=== PATIENT | male | born 1980 | race Two or more races ===

== ENCOUNTER 2016-06-04 09:34 | Emergency (ER) | payer OTHER ==
[~2016-06-04] VITALS: Ht 177.8 cm; Wt 113.4 kg
[2016-06-04 10:50] VITALS: BP 156/77
== END 2016-06-04 11:24 | disposition home or self-care (01) ==
LOC: ER 09:34
DX: S39.012A Strain of muscle, fascia and tendon of lower back, initial encounter (principal); V49.9XXA Car occupant (driver) (passenger) injured in unspecified traffic accident, initial encounter; Y93.89 Activity, other specified; Y99.8 Other external cause status; Y92.89 Other specified places as the place of occurrence of the external cause

== ENCOUNTER 2017-02-23 10:40 | Emergency (ER) | payer OTHER ==
[~2017-02-23] VITALS: Ht 177.8 cm; Wt 115.7 kg
[2017-02-23 11:17] LABS: Basophils # (auto) 0.1 uL; Basophils % (auto) 1.2 % (0.0-2.0); Eosinophils # (auto) 0.1 uL; Hematocrit 46.4 % (41.0-53.0); Hemoglobin 16.3 g/dL (13.5-17.5); Lymphocytes # (auto) 2.4 uL; Lymphocytes % (auto) 37.9 % (10.0-50.0); Mean Corpuscular Hemoglobin 31.5 pg (28.0-32.0); Mean Corpuscular Hgb Conc. 35.1 g/dL (32.0-36.0); Mean Corpuscular Volume 89.9 fL (80.0-100.0); Mean Platelet Volume 7.6 fL (6.9-10.8); Monocytes # (auto) 0.3 uL; Monocytes % (auto) 4.5 % (0.0-12.0); Neutrophils # (auto) 3.5 uL; Neutrophils % (auto) 54.4 % (37.0-80.0); Nucleated Red Blood Cells % 0.5 %; Platelet Count (auto) 272 10^3/uL (140-450); Red Cell Distribution Width 12.7 % (11.8-14.3); White Blood Cell 6.4 10^3/uL (4.4-10.8)
[2017-02-23 11:42] LABS: Albumin 3.6 g/dL (3.4-5.0); Alkaline Phosphatase 97 U/L (45-117); Anion Gap 10 (5-15); Aspartate Aminotransferase 19 U/L (15-37); BUN/Creatinine Ratio 15.5; Bilirubin, Total 0.3 mg/dL (0.2-1.0); Blood Urea Nitrogen 13 mg/dL (7-18); Calcium 8.3 mg/dL (8.5-10.1); Carbon Dioxide 23 mmol/L (21-32); Chloride 106 mmol/L (98-107); GFR African American 132 mL/min; GFR Non-African American 109 mL/min; Glucose 105 mg/dL (74-106); Magnesium 2.3 mg/dL (1.6-2.6); Potassium 4.2 mmol/L (3.5-5.1); Sodium 139 mmol/L (136-145); Total Protein 7.5 g/dL (6.4-8.2)
[2017-02-23 13:05] VITALS: BP 117/78
== END 2017-02-23 13:41 | disposition home or self-care (01) ==
LOC: ER 10:40
DX: R07.89 Other chest pain (principal); R06.02 Shortness of breath; R53.1 Weakness; R53.83 Other fatigue; M79.602 Pain in left arm
CPT/HCPCS: 36415; 71020; 80053; 83735; 84484; 85025; 93005; 94761

== ENCOUNTER 2017-12-13 02:21 | Emergency (ER) | payer MEDICAID, OTHER ==
[~2017-12-13] VITALS: Ht 180.3 cm; Wt 122.5 kg
[2017-12-13 02:34] VITALS: BP 157/98
== END 2017-12-13 04:41 | disposition home or self-care (01) ==
LOC: ER 02:26
DX: J01.90 Acute sinusitis, unspecified (principal); J30.9 Allergic rhinitis, unspecified; F12.10 Cannabis abuse, uncomplicated

== ENCOUNTER 2018-01-15 17:30 | Emergency (ER) | payer MEDICAID ==
[~2018-01-15] VITALS: Ht 180.3 cm; Wt 122.5 kg
[2018-01-15 20:08] VITALS: BP 138/48
[2018-01-15] MEDS ORDERED: HYDROcodone-ACET 10/325MG TAB PO ONE (21:15)
== END 2018-01-15 21:23 | disposition home or self-care (01) ==
LOC: ER 17:31
DX: M72.2 Plantar fascial fibromatosis (principal); F12.10 Cannabis abuse, uncomplicated
CPT/HCPCS: 73630; 99284; L3260

== ENCOUNTER 2019-07-09 15:25 | Inpatient (IN) | payer MEDICAID, OTHER ==
[~2019-07-09] VITALS: Ht 172.7 cm; Wt 114.4 kg
[2019-07-09 16:21] LABS: Urine Bacteria NONE SEEN /hpf (None Seen); Urine Blood 1+ /uL (Negative); Urine Mucus FEW (None Seen); Urine Specific Gravity 1.028 (1.001-1.035); Urine WBC 1 /hpf (0 - 3)
[2019-07-09 16:46] LABS: Basophils # (auto) 0.1 10 ^3/uL (0-0.2); Basophils % (auto) 0.6 % (0.0-2.0); Eosinophils # (auto) 0.1 10 ^3/uL (0-0.8); Eosinophils % (auto) 0.5 % (0.0-7.0); Hematocrit 45.5 % (41.0-53.0); Hemoglobin 15.5 g/dL (13.5-17.5); Lymphocytes # (auto) 2.4 10 ^3/uL (0.4-5.4); Lymphocytes % (auto) 21.1 % (10.0-50.0); Mean Corpuscular Hemoglobin 30.5 pg (28.0-32.0); Mean Corpuscular Hgb Conc. 34.1 g/dL (32.0-36.0); Mean Corpuscular Volume 89.3 fL (80.0-100.0); Monocytes # (auto) 0.7 10 ^3/uL (0-1.3); Monocytes % (auto) 6.3 % (0.0-12.0); Neutrophils % (auto) 71.5 % (37.0-80.0); Platelet Count (auto) 301 10^3/uL (140-450); White Blood Cell 11.2 10^3/uL (4.4-10.8)
[2019-07-09 17:01] LABS: Albumin 3.7 g/dL (3.4-5.0); Calcium 9.3 mg/dL (8.5-10.1); Potassium 4.2 mmol/L (3.5-5.1)
[2019-07-09 17:04] LABS: BUN/Creatinine Ratio 20.9; Bilirubin, Total 0.3 mg/dL (0.2-1.0); Total Protein 8.6 g/dL (6.4-8.2)
[2019-07-09] MEDS ORDERED: SODIUM CHLORIDE 0.9% 1,000 ML IV ONE ×2 (17:56)
[2019-07-09] MEDS ORDERED: PIPERACILLIN-TAZOB 3.375GM 100 ML IV ONE (18:00)
[2019-07-09] MEDS ORDERED: MORPHINE SULFATE 4 MG/ML SYR/VIAL IV ONE (18:15)
[2019-07-09] MEDS ORDERED: ONDANSETRON HCL 4 MG/2 ML VIAL IV ONE (18:15)
[2019-07-09 19:13] LABS: Barbiturate Scree,Urine NEGATIVE (NEGATIVE); Benzodiazephine Screen, Urine NEGATIVE (NEGATIVE); Cannabinoid Screen, Urine POSITIVE (NEGATIVE); Cocaine Screen, Urine NEGATIVE (NEGATIVE); Opiate Scree,Urine NEGATIVE (NEGATIVE); Phencyclidine Screen, Urine NEGATIVE (NEGATIVE)
[2019-07-09 19:20] LABS: Amphetamine Screen, Urine NEGATIVE (NEGATIVE)
[2019-07-09] MEDS ORDERED: ONDANSETRON HCL 4 MG/2 ML VIAL IV PRN (20:00)
[2019-07-09] MEDS ORDERED: hydrALAZINE HCL 20 MG/ML VL IV PRN (20:00)
[2019-07-09] MEDS ORDERED: MORPHINE SULF INJ 2 MG/ML SYRINGE 1ML IV PRN (20:00)
[2019-07-09] MEDS ORDERED: NITROGLYCERIN 0.4 MG SL TAB SL PRN (20:00)
[2019-07-09 21:30] VITALS: BP 124/77
--- NOTE | 2019-07-09 21:40 | NUR ---
MS admit from ER SUSANNE,IRENE admitted to [facility]. Patient oriented to Alfonso Yusuf, primary RN, unit, room, bed, and unit policies regarding patient care and visiting hours. Patient weighed by bedscale and encouraged to call if they need something.Patient c/o 6/10 sharp and stabbing left sided abdominal pain but denies any nausea or vomiting. Will treat with PRN pain medication. All questions and concerns addressed, patient verbalized understanding.
[2019-07-09] MEDS: MORPHINE SULF INJ 2 MG/ML SYRINGE 1ML IV PRN (21:55)
[2019-07-09 22:00] VITALS: BP 124/77
[2019-07-09] MEDS: metroNIDAZOLE 500MG/100ML 100 ML IV SCH (22:00)
[2019-07-10] MEDS: MORPHINE SULF INJ 2 MG/ML SYRINGE 1ML IV PRN ×3 (00:58→14:15)
--- NOTE | 2019-07-10 00:58 | NUR ---
PAIN ASSESSMENT The patient c/o left lower abdominal pain which he rates as a 6/10 in severity. The patient request pain medication for his pain. Will administer PRN pain medication and reevaluate.
--- NOTE | 2019-07-10 01:30 | NUR ---
PAIN REASSESSMENT The patient reports that his pain slightly improved to 5/10. Patient is resting in bed. Will continue to monitor the patient's pain.
[2019-07-10] MEDS ORDERED: TRAM50TA2 PO (01:50)
[2019-07-10] MEDS ORDERED: MELO1TAB56 PO (01:50)
[2019-07-10] MEDS ORDERED: GABA-339 PO (01:51)
[2019-07-10 05:00] VITALS: BP 124/76
[2019-07-10 06:04] LABS: Basophils # (auto) 0 10 ^3/uL (0-0.2); Basophils % (auto) 0.3 % (0.0-2.0); Eosinophils # (auto) 0.1 10 ^3/uL (0-0.8); Eosinophils % (auto) 0.5 % (0.0-7.0); Hematocrit 41.6 % (41.0-53.0); Hemoglobin 14.4 g/dL (13.5-17.5); Lymphocytes # (auto) 2.1 10 ^3/uL (0.4-5.4); Lymphocytes % (auto) 18.9 % (10.0-50.0); Mean Corpuscular Hemoglobin 30.8 pg (28.0-32.0); Mean Corpuscular Hgb Conc. 34.7 g/dL (32.0-36.0); Mean Corpuscular Volume 88.8 fL (80.0-100.0); Monocytes # (auto) 0.7 10 ^3/uL (0-1.3); Monocytes % (auto) 6.4 % (0.0-12.0); Neutrophils # (auto) 8.2 10 ^3/uL (1.6-8.6); Neutrophils % (auto) 73.9 % (37.0-80.0); Platelet Count (auto) 257 10^3/uL (140-450); Red Blood Cells 4.69 10^6/uL (4.5-5.90); Red Cell Distribution Width 12.9 % (11.8-14.3)
[2019-07-10 06:17] LABS: Albumin 3.2 g/dL (3.4-5.0); Calcium 8.8 mg/dL (8.5-10.1); Potassium 3.8 mmol/L (3.5-5.1)
[2019-07-10 06:21] LABS: BUN/Creatinine Ratio 18.1; Bilirubin, Total 0.6 mg/dL (0.2-1.0); Total Protein 7.5 g/dL (6.4-8.2)
[2019-07-10] MEDS: metroNIDAZOLE 500MG/100ML 100 ML IV SCH ×3 (06:37→22:57)
--- NOTE | 2019-07-10 08:00 | NUR ---
OPENING SHIFT NOTE: PATIENT AWAKE A/O X4. RESPIRATIONS EVEN AND UNLABORED. PATIENT REPORTING LLQ AND BACK PAIN, HOWEVER DENIES REQUEST FOR PAIN MEDICATION. PATIENT REPORTS PRIOR ADDICTION TO [facility], "MY BODY REJECTS IT NOW AND THE MORPHINE MAKES MY TEETH FEEL LOOSE, I WOULD RATHER NOT DO PAIN MEDS RIGHT NOW." PATIENT GIVEN EDUCATION ON ALTERNATIVES AND DOES NOT WISH FOR ANY AT THIS TIME. CALL LIGHT WITHIN REACH, FALL PRECAUTIONS IN PLACE, UPDATED ON PLAN OF CARE, WILL CONTINUE TO MONITOR.
[2019-07-10 09:22] VITALS: BP 130/75
--- NOTE | 2019-07-10 09:24 | NUR ---
CALL FROM MD MURPHY: ORDERS RECEIVED FOR NOTHING BY MOUTH, AND INSERTION OF NGT ON LOW INTERMITTENT SUCTION.
--- NOTE | 2019-07-10 09:25 | NUR ---
SHOWER: PATIENT REQUESTING TO SHOWER PRIOR TO INSERTION OF NGT, PATIENT CONTACTED FAMILY FOR SUPPLIES TO BE DELIVERED. WILL CONTINUE TO MONITOR.
[2019-07-10] MEDS: levoFLOXacin 250MG 50 ML IV SCH (09:31)
[2019-07-10] MEDS: PANTOPRAZOLE 40 MG/10 ML VIAL INJ IV SCH (09:31)
--- NOTE | 2019-07-10 11:27 | NUR ---
PATIENT IN SHOWER. IV COVERED AND EDUCATION GIVEN.
[2019-07-10 13:00] VITALS: BP 120/69
[2019-07-10] MEDS: D5W/LACTATED RINGERS 1,000 ML IV SCH ×2 (14:14→22:57)
--- NOTE | 2019-07-10 14:15 | NUR ---
NG TUBE INSERTION: 14FR NG TUBE INSERTED TO RIGHT NARE AT 65CM. PLACEMENT VERIFIED WITH AUSCULTATION AND X RAY. MINIMAL CLEAR CONTENT WITH SOME SANGUINEOUS BLOOD NOTED IN CANISTER UPON CONNECTION. SET CONNECTED TO LIS. PATIENT APPEARS VERY UPSET ABOUT NG TUBE, REPORTS FEELING NAUSEATED AND UNCOMFORTABLE SOBBING. PAIN MEDICATION AND NAUSEA MEDICATION GIVEN ORDERED. WILL CONTINUE TO MONITOR.
--- NOTE | 2019-07-10 15:20 | NUR ---
NGT REMOVAL: PATIENT UNABLE TO TOLERATE NGT. PATIENT REPORTS THAT IS "IS GOING TO HAVE A PANIC ATTACK." NGT REMOVED. MD MANRIQUEZ AWARE.
--- NOTE | 2019-07-10 15:44 | NUR ---
PATIENT UP AMBULATING AROUND THE UNIT.
[2019-07-10 17:03] VITALS: BP 135/82
--- NOTE | 2019-07-10 17:18 | NUR ---
PAGE TO MD MANRIQUEZ: PATIENT REPORTING A HEADACHE, FLUSHED FEELING, AND HOT TO TOUCH. PATIENT HAS BEEN GETTING MORPHINE FOR PAIN. LEFT MESSAGE WITH MD MANRIQUEZ REGARDING POSSIBILITY FOR A DIFFERENT SEVERE PAIN SCALE MEDICATION OR DISCONTINUING THE MORPHINE. PATIENT INFORMED AND ROOM TEMP ADJUSTED FOR COMFORT.
--- NOTE | 2019-07-10 18:40 | NUR ---
TORADOL GIVEN ORDERED FOR PAIN 10/06.
[2019-07-10] MEDS: KETOROLAC TROMETH 30 MG/ML 1ML VIAL IV PRN (18:48)
--- NOTE | 2019-07-10 19:06 | NUR ---
CARE ENDORSED TO JAIR FALL.
--- NOTE | 2019-07-10 19:30 | NUR ---
Opening Shift Note Assumed care of patient. Patient was asleep upon entering room. Arousable to name. The patient reports having no abdominal pain at the moment. No patient also has no S/S of distress/SOB. Bed is locked in lowest position with call light within reach. Instructed on POC and to call for assist PRN, will continue to monitor for changes Q1hr and PRN.
[2019-07-10 22:00] VITALS: BP 113/74
[2019-07-11 04:36] VITALS: BP 107/60
[2019-07-11 05:54] LABS: Basophils # (auto) 0 10 ^3/uL (0-0.2); Basophils % (auto) 0.2 % (0.0-2.0); Eosinophils # (auto) 0 10 ^3/uL (0-0.8); Eosinophils % (auto) 0.4 % (0.0-7.0); Hematocrit 40.3 % (41.0-53.0); Hemoglobin 14.1 g/dL (13.5-17.5); Lymphocytes % (auto) 20.6 % (10.0-50.0); Mean Corpuscular Hemoglobin 31.1 pg (28.0-32.0); Mean Corpuscular Hgb Conc. 35.1 g/dL (32.0-36.0); Mean Corpuscular Volume 88.6 fL (80.0-100.0); Monocytes # (auto) 0.8 10 ^3/uL (0-1.3); Monocytes % (auto) 7.9 % (0.0-12.0); Neutrophils # (auto) 6.9 10 ^3/uL (1.6-8.6); Neutrophils % (auto) 70.9 % (37.0-80.0); Platelet Count (auto) 243 10^3/uL (140-450); Red Blood Cells 4.55 10^6/uL (4.5-5.90); Red Cell Distribution Width 12.7 % (11.8-14.3); White Blood Cell 9.7 10^3/uL (4.4-10.8)
[2019-07-11 06:13] LABS: Calcium 8.6 mg/dL (8.5-10.1); Potassium 3.8 mmol/L (3.5-5.1)
--- NOTE | 2019-07-11 07:35 | NUR ---
Opening Shift Note Assumed care of patient, awake and alert. No S/S of distress/SOB or pain. Updated on POC and instructed to call for assistance PRN, patient verbalized understanding. Bed locked in lowest position, side rails up x2, call light within reach. Will continue to monitor for changes Q1hr and PRN.
[2019-07-11] MEDS: metroNIDAZOLE 500MG/100ML 100 ML IV SCH ×3 (08:32→23:04)
[2019-07-11 08:42] LABS: BUN/Creatinine Ratio 15.5
[2019-07-11 09:00] VITALS: BP 118/76
[2019-07-11] MEDS: PANTOPRAZOLE 40 MG/10 ML VIAL INJ IV SCH (09:27)
[2019-07-11] MEDS: levoFLOXacin 250MG 50 ML IV SCH (09:27)
[2019-07-11] MEDS: D5W/LACTATED RINGERS 1,000 ML IV SCH ×2 (09:28→17:32)
[2019-07-11] MEDS: KETOROLAC TROMETH 30 MG/ML 1ML VIAL IV PRN ×2 (09:28→23:39)
[2019-07-11 13:00] VITALS: BP 122/71
[2019-07-11 17:00] VITALS: BP 119/69
--- NOTE | 2019-07-11 19:20 | NUR ---
Opening Shift Note Assumed care of patient. Patient is awake and alert. No S/S of distress/SOB. Instructed on POC and to call for assist PRN, will continue to monitor for changes Q1hr and PRN. Bed locked in lowest position and bed rails up x2. Call light within reach.
[2019-07-11 22:03] VITALS: BP 110/62
[2019-07-11] MEDS ORDERED: ACETAMINOPHEN 325 MG TAB PO PRN (22:30)
[2019-07-12] MEDS: D5W/LACTATED RINGERS 1,000 ML IV SCH (04:00)
[2019-07-12 05:06] VITALS: BP 126/68
[2019-07-12] MEDS: metroNIDAZOLE 500MG/100ML 100 ML IV SCH (06:27)
[2019-07-12 08:00] VITALS: BP 109/58
[2019-07-12 09:29] VITALS: BP 109/58
[2019-07-12] MEDS ORDERED: LEVO-28 PO (10:06)
[2019-07-12] MEDS ORDERED: TRAM50TA2 PO (10:06)
[2019-07-12] MEDS ORDERED: METR500T14 PO (10:06)
[2019-07-12] MEDS: levoFLOXacin 250MG 50 ML IV SCH (10:34)
[2019-07-12] MEDS: PANTOPRAZOLE 40 MG/10 ML VIAL INJ IV SCH (10:34)
[2019-07-12 12:40] VITALS: BP 109/58
[2019-07-12 13:00] VITALS: BP 117/76
--- NOTE | 2019-07-12 14:58 | NUR ---
Discharge instructions given as ordered. Encourage to follow up with PMD as instructed. All questions and concerns addressed. Patient verbalized understanding. Medication reconciliation form completed and copy given to patient. No home medications being held in Pharmacy and patient refused needed vaccines. IV removed with catheter intact and pressure dressing applied, Patient taken to vehicle via wheelchair with all personal belongings, accompanied by staff member. No distress noted at time of departure.
== END 2019-07-12 14:58 | disposition home or self-care (01) | DRG 244 ==
LOC: ER 15:25 → OVERFLOW 15:26 → WEST WING 21:28
PROVIDERS: ADMIT Nurse Practitioner Acute Care; ATTEND Hospitalist
DX: K57.32 Diverticulitis of large intestine without perforation or abscess without bleeding (principal); K76.0 Fatty (change of) liver, not elsewhere classified; E66.01 Morbid (severe) obesity due to excess calories; R65.10 Systemic inflammatory response syndrome (SIRS) of non-infectious origin without acute organ dysfunction; I10 Essential (primary) hypertension; Z96.659 Presence of unspecified artificial knee joint; K57.30 Diverticulosis of large intestine without perforation or abscess without bleeding; G89.29 Other chronic pain; M54.5 Low back pain; Z79.899 Other long term (current) drug therapy; Z68.38 Body mass index [BMI] 38.0-38.9, adult
CPT/HCPCS: 36415; 71045; 74176; 80048; 80053; 80307; 81001; 83605; 85025; 87040; 96365; 96367; 96375; 99291; C9113; G0378; J1885; J2405; J2543; J3490

== ENCOUNTER → 2019-11-28 | Emergency (ER) | payer MEDICAID ==
[~2019-11-28] VITALS: Ht 177.8 cm; Wt 113.4 kg
[~2019-11-28] MED LIST: GABA-339 PO; LEVO-28 PO; METR500T14 PO; TRAM50TA2 PO
[2019-11-28 18:51] VITALS: BP 132/90
== END | disposition home or self-care (01) ==
LOC: ER 16:27
DX: S89.91XA Unspecified injury of right lower leg, initial encounter (principal); Z79.899 Other long term (current) drug therapy; X50.1XXA Overexertion from prolonged static or awkward postures, initial encounter; Y93.89 Activity, other specified; Y92.89 Other specified places as the place of occurrence of the external cause; Y99.8 Other external cause status
CPT/HCPCS: 73562

== ENCOUNTER 2020-01-03 20:34 | Inpatient (IN) | payer MEDICAID ==
[~2020-01-03] VITALS: Ht 177.8 cm; Wt 111.1 kg
[2020-01-03 21:28] LABS: Basophils # (auto) 0.1 10 ^3/uL (0-0.2); Basophils % (auto) 0.8 % (0.0-2.0); Eosinophils # (auto) 0 10 ^3/uL (0-0.8); Eosinophils % (auto) 0.3 % (0.0-7.0); Hematocrit 47.6 % (41.0-53.0); Hemoglobin 16.4 g/dL (13.5-17.5); Lymphocytes # (auto) 2.5 10 ^3/uL (0.4-5.4); Mean Corpuscular Hemoglobin 30.9 pg (28.0-32.0); Mean Corpuscular Hgb Conc. 34.4 g/dL (32.0-36.0); Monocytes # (auto) 0.8 10 ^3/uL (0-1.3); Monocytes % (auto) 7.2 % (0.0-12.0); Neutrophils % (auto) 69.7 % (37.0-80.0); Nucleated Red Blood Cells % 0.2 %; Platelet Count (auto) 250 10^3/uL (140-450); Red Blood Cells 5.29 10^6/uL (4.5-5.90); Red Cell Distribution Width 13.3 % (11.8-14.3); White Blood Cell 11.4 10^3/uL (4.4-10.8)
[2020-01-03 21:45] LABS: Albumin 3.7 g/dL (3.4-5.0); Calcium 8.9 mg/dL (8.5-10.1); Magnesium 2.3 mg/dL (1.6-2.6); Potassium 3.7 mmol/L (3.5-5.1)
[2020-01-03 21:48] LABS: Bilirubin, Total 0.7 mg/dL (0.2-1.0); Total Protein 7.6 g/dL (6.4-8.2)
[2020-01-03 23:51] LABS: Urine Bacteria FEW /hpf (None Seen); Urine Blood 1+ /uL (Negative); Urine Hyaline Cast FEW /lpf (0 - 2); Urine Mucus FEW (None Seen); Urine Specific Gravity 1.032 (1.001-1.035); Urine WBC 1 /hpf (0 - 3)
[2020-01-04] MEDS ORDERED: ONDANSETRON HCL 4 MG/2 ML VIAL IV ONE (01:15)
[2020-01-04] MEDS ORDERED: SODIUM CHLORIDE 0.9% 1,000 ML IV ONE (01:15)
[2020-01-04] MEDS ORDERED: MORPHINE SULFATE 4 MG/ML SYR/VIAL IV ONE (01:15)
[2020-01-04] MEDS ORDERED: fentaNYL CITRATE 100 MCG/2 ML VL IV ONE (02:00)
[2020-01-04 03:00] VITALS: BP 122/71
[2020-01-04] MEDS ORDERED: HYDROmorphone HCL 2 MG/ML VL IV PRN (04:00)
[2020-01-04] MEDS ORDERED: SODIUM CHLORIDE 0.9% 1,000 ML IV SCH (04:00)
[2020-01-04] MEDS ORDERED: ONDANSETRON HCL 4 MG/2 ML VIAL IV PRN (04:00)
[2020-01-04] MEDS ORDERED: PIPERACILLIN-TAZOB 3.375GM 100 ML IV SCH (04:30)
== END 2020-01-04 04:55 | disposition left against medical advice (07) | DRG 244 ==
LOC: ER 20:43 → OVERFLOW 20:44
PROVIDERS: ADMIT Hospitalist; ATTEND Hospitalist
DX: K57.32 Diverticulitis of large intestine without perforation or abscess without bleeding (principal); Z53.29 Procedure and treatment not carried out because of patient's decision for other reasons; K42.9 Umbilical hernia without obstruction or gangrene; K76.0 Fatty (change of) liver, not elsewhere classified
CPT/HCPCS: 36415; 74176; 80053; 81001; 82150; 83690; 83735; 85025; 96361; 96374; 96375; G0378; J2405

== ENCOUNTER 2020-02-23 17:22 | Emergency (ER) | payer MEDICAID ==
[~2020-02-23] VITALS: Ht 180.3 cm; Wt 111.1 kg
[2020-02-23] MEDS ORDERED: cefTRIAXone SOD 1,000 MG VL IM ONE (19:45)
[2020-02-23] MEDS ORDERED: DOXYCYCLINE 100 MG TAB/CAP PO ONE (19:45)
[2020-02-23 19:50] VITALS: BP 130/96
== END 2020-02-23 20:02 | disposition home or self-care (01) ==
LOC: ER 17:22
DX: U07.1 COVID-19 (principal); R51.9 Headache, unspecified; Z20.828 Contact with and (suspected) exposure to other viral communicable diseases
CPT/HCPCS: 36415; 71045; 87426; J0696

== ENCOUNTER 2022-06-25 11:48 | Day surgery (SDC) | payer MEDICAID ==
[2022-06-23 09:21] LABS: Basophils # (auto) 0 10 ^3/uL (0-0.2); Basophils % (auto) 0.6 % (0.0-2.0); Eosinophils # (auto) 0.1 10 ^3/uL (0-0.8); Eosinophils % (auto) 0.8 % (0.0-7.0); Hemoglobin 16.9 g/dL (13.5-17.5); Lymphocytes # (auto) 2.6 10 ^3/uL (0.4-5.4); Lymphocytes % (auto) 34.2 % (10.0-50.0); Mean Corpuscular Hemoglobin 31.8 pg (28.0-32.0); Mean Corpuscular Hgb Conc. 35.3 g/dL (32.0-36.0); Monocytes # (auto) 0.3 10 ^3/uL (0-1.3); Monocytes % (auto) 4.1 % (0.0-12.0); Neutrophils # (auto) 4.6 10 ^3/uL (1.6-8.6); Neutrophils % (auto) 60.3 % (37.0-80.0); Nucleated Red Blood Cells % 0.2 %; Red Blood Cells 5.33 10^6/uL (4.5-5.90); Red Cell Distribution Width 13.3 % (11.8-14.3); White Blood Cell 7.6 10^3/uL (4.4-10.8)
[2022-06-23 09:33] LABS: Urine Bacteria NONE SEEN /hpf (None Seen); Urine Blood Negative /uL (Negative); Urine Mucus FEW (None Seen); Urine WBC 19 /hpf (0 - 3)
[2022-06-23 09:55] LABS: INR 1.18 (0.9-1.15); Partial Thromboplastin Time 29.5 sec (24.6-33.4)
[2022-06-23 10:09] LABS: Potassium 4.2 mmol/L (3.5-5.1)
[2022-06-23 10:30] LABS: Albumin 3.6 g/dL (3.4-5.0); BUN/Creatinine Ratio 17.6 (10.0-20.0); Bilirubin, Total 0.5 mg/dL (0.2-1.0); Calcium 8.9 mg/dL (8.5-10.1); Total Protein 7.4 g/dL (6.4-8.2)
[~2022-06-25] VITALS: Ht 177.8 cm; Wt 109.3 kg
[~2022-06-25 11:48] MED LIST changes: -GABA-339 PO; +HYDR-4798 PO; -LEVO-28 PO; -METR500T14 PO; -TRAM50TA2 PO
[2022-06-25] MEDS ORDERED: KETAMINE 50mg/ML 10ml Vial (500mg/10ml) IV ONE (12:50)
[2022-06-25] MEDS ORDERED: fentaNYL CITRATE 100 MCG/2 ML VL ONE (13:15)
[2022-06-25] MEDS ORDERED: MIDAZOLAM HCL 2MG/2ML 2ml VIAL (1mg/ml) ONE (13:15)
[2022-06-25] MEDS ORDERED: PROPOFOL 10 MG/ML 20 ML IV ONE (13:16)
[2022-06-25] MEDS ORDERED: LIDOCAINE 2% (LOCAL ANESTH.) PF 5ml SDV ONE (13:16)
[2022-06-25] MEDS ORDERED: ONDANSETRON HCL 4 MG/2 ML VIAL IV PRN (14:00)
[2022-06-25] MEDS ORDERED: HYDROmorphone HCL 2 MG/ML VL/or syr IV PRN (14:00)
[2022-06-25 14:15] VITALS: BP 149/99
== END 2022-06-25 14:15 | disposition home or self-care (01) ==
LOC: GI 11:48
PROVIDERS: ATTEND Internal Medicine Gastroenterology
DX: R10.32 Left lower quadrant pain (principal); K52.9 Noninfective gastroenteritis and colitis, unspecified; K64.0 First degree hemorrhoids; K63.89 Other specified diseases of intestine; Z20.822 Contact with and (suspected) exposure to COVID-19
CPT/HCPCS: 36415; 45380; 45385; 80053; 81001; 85025; 85610; 85730; J2001; J2250; J2704; J3010; J7030; U0003